=== PATIENT | female | born 1945 | race Caucasian/White ===

== ENCOUNTER 2024-04-21 13:24 | Outpatient (CLI) | payer MEDICARE, SELFPAY ==
--- NOTE | 2024-04-21 13:29 | MM_ITS ---
WS: [facility] LEFT 3D TOMOSYNTHESIS DIGITAL MAMMOGRAPHY WITH CAD CLINICAL INFORMATION: HX OF BREAST CANCER HISTORY: RIGHT mastectomy COMPARISON: 2019 TECHNIQUE: 3 views of the left breast were obtained. FINDINGS: The left breast is composed of heterogeneous fibroglandular density tissue, which can limit the detec tion of small underlying mass lesions. A few incidental punctate calcifications. No suspicious focal mass, asymmetry, calcifications, or architectural distortion. No evidence of umberto gnancy. MM/[place] [id number] IMPRESSION: BI-RADS: 2-Benign FOLLOW UP: 1 Year Follow-up Recommend return to annual diagnostic mammography.
--- NOTE | 2024-04-21 13:29 | XR_ITS ---
WS: [id number] DEXA (DUAL ENERGY X-RAY ABSORPTIOMETRY) Bone mineral density was performed using a [employer] machine. HISTORY: OSTEOPOROSIS COMPARISON: 02/16/2018 Lumbar spine BMD (L1-L4): 1.183 g/cm2 T score: 0.0 Z score: 2.0 Total hip BMD: Left: 0.861 g/cm2. T score: -1.2 Z score: 0.9 Right: 0.800 g/cm2. T score: -1.6 Z score: 0.4 10 year probability of a major osteoporotic fracture is 15.8%. Compared to the prior study from 02/16/2018. Lumbar spine bone mineral density has increased by 5.6%. Bilateral hips bone mineral density has decreased by 5.1%. XR/XR DEXA axial skeleton* [id number] IMPRESSION: OSTEOPENIA based upon the WHO classification for females. Significant increase in bone mineral density within the lumbar spine since the prior exam. Significant decrease in bone mineral density within the hips since the prior ex am.
== END 2024-04-21 13:25 | disposition home or self-care (01) ==
LOC: RAD 13:24
PROVIDERS: Visit Provider Family Medicine
DX: Z12.31 Encounter for screening mammogram for malignant neoplasm of breast (principal); Z85.3 Personal history of malignant neoplasm of breast; R92.322 Mammographic fibroglandular density, left breast; R92.1 Mammographic calcification found on diagnostic imaging of breast; M81.0 Age-related osteoporosis without current pathological fracture; M85.80 Other specified disorders of bone density and structure, unspecified site
CPT/HCPCS: 77061; 77080; G0279